=== PATIENT | female | born 1970 | race Caucasian/White ===

== ENCOUNTER 2020-03-19 14:19 | Emergency (ER) | payer MEDICAID, OTHER ==
[~2020-03-19] VITALS: Ht 160 cm; Wt 108.8 kg
--- OUTSIDE RECORDS SUMMARY | 2020-03-19 14:27 | XMS REPORT | Continuity of Care Document ---
Author Organization Unknown Address Unknown Phone Unavailable Allergies There is no data. Medications There is no data. Problems There is no data. Procedures There is no data. Results Test Result Range A1C - 12/29/18 11:55 HEMOGLOBIN A1c 7.7 % of total Hgb <5.7 MICROALBUMIN/CREATININE RATIO, URINE - 0 07/02/19 12:49 CREATININE, RANDOM URINE 239 mg/dL 20-27 5 MICROALBUMIN 2.5 mg/dL See Note: MICROALBUMIN/CREATININE RATIO, RANDOM URINE 10 mcg /mg creat <30 CBC w/MANUAL DIFF - 12/08/19 13:56 WHITE BLOOD CELL COUNT 9.8 Thousand/uL 3 .8-10.8 RED BLOOD CELL COUNT 4.95 Million/uL 3.8 0-5.10 HEMOGLOBIN 14.8 g/dL 11.7-15.5 HEMATOCRIT 44.7 % 35.0-45.0 MCV 90.3 fL 80.0-100.0 MCH 29.9 pg 27.0-33.0 MCHC 33.1 g/dL 32.0-36.0 RDW 13.5 % 11.0-15.0 PLATELET COUNT 278 Thousand/uL 140-400 MPV 9.8 fL 7.5-12.5 A1C - 12/08/19 13:56 HEMOGLOBIN A1c 10.8 % of total Hgb <5.7 DIFFERENTIAL, MANUAL - 12/08/19 13:56 ABSOLUTE NEUTROPHILS 6664 cells/uL 1500- 7800 ABSOLUTE MONOCYTES 284 cells/uL 200-950 ABSOLUTE EOSINOPHILS 186 cells/uL 15-500 ABSOLUTE BASOPHILS 0 cells/uL 0-200 NEUTROPHILS 68.0 % NRG LYMPHOCYTES 24.3 % NRG MONOCYTES 2.9 % NRG EOSINOPHILS 1.9 % NRG BASOPHILS 0 % NRG ABSOLUTE BAND NEUTROPHILS 98 cells/uL 0- 750 ABSOLUTE METAMYELOCYTES 186 cells/uL ABSOLUTE LYMPHOCYTES 2381 cells/uL 850-3 900 BAND NEUTROPHILS 1.0 % NRG METAMYELOCYTES 1.9 % NRG PLATELET ESTIMATION ADEQUATE ADEQUATE A1C - 03/02/20 07:17 HEMOGLOBIN A1c 11.8 % of total Hgb <5.7 Encounters ACCT No. Visit Date/Time Discharge Status Pt. Type Provider Facility Loc./Unit Complaint [id number] 03/10/2020 15:00:00 03/10/2020 23:59: 59 [facility] [id number] 03/02/2020 07:00:00 Document Registration [id number] 12/08/2019 12:30:00 Document Registration [id number] 07/02/2019 11:30:00 Document Registration [id number] 12/29/2018 11:45:00 Document Registration
--- OUTSIDE RECORDS SUMMARY | 2020-03-19 14:27 | XMS REPORT ---
Author Author Silva LARIOS Organization [facility] Address [address] [place] [address] Care Team Providers Care Aitchbone Breaker Name Role Phone STANISLAV LARIOS Unavailable PROBLEMS Type Condition ICD9-CM Code EDU04-LV Code Onset Dates Condition S tatus SNOMED Code Problem Morbid obesity with BMI of 40.0-44.9, adult E66.01 February, 0 672874734 Problem HTN (hypertension), benign I10 Apr, 0 39157114 Problem Cough R05 08 Mar, 2011 0 4307868 2 Problem Gastroesophageal reflux disease with esophagitis 530.11 Apr, 0 987645169 Problem Primary osteoarthritis of right knee M17.11 Sep, 0 610215366 Problem Controlled type 2 diabetes mellitus E11.9 Active 910141057 Problem Gastroesophageal reflux disease with esophagitis K 21.0 Apr, 0 944039544 Problem Morbid obesity with BMI of 40.0-44.9, adult 278.01 February, 0 085058329 Problem HTN (hypertension), benign 401.1 Apr, 0 90370690 Problem Cough 786.2 Mar, 0 2549873 2 Problem Primary osteoarthritis of right knee 715.16 Sep, 0 700145479 ALLERGIES No Information ENCOUNTERS Encounter Location Date Diagnosis [address] [address] Jun, Controlled type 2 diabetes mellitus E11. 9 [facility] [address] [place] [address] May, Morbid obesity E66.01 ; Bronchitis J40 a nd Acute non-recurrent maxillary sinusitis J01.[address] [address] Jan, [address] [address] Jan, [address] [address] Dec, Controlled type 2 diabetes mellitus E11. 9 [facility] [address] [facility] [id number] [address] [place] [phone] Oct, [facility] [address] [facility] [id number] [address] [place] [phone] Oct, [facility] [address] [facility] [id number] [address] [place] [id number] Sep, [facility] [address] [facility] [id number] [address] [place] [id number] February, IMMUNIZATIONS No Known Immunizations SOCIAL HISTORY Never Assessed REASON FOR VISIT Lab (walk-in) PLAN OF CARE VITAL SIGNS MEDICATIONS Unknown Medications RESULTS No Results PROCEDURES Procedure Date Ordered Result Body Site VENIPUNCT, ROUTINE* December 29, 2018 Hemoglobin Test Send Out 0 dollar December 29, 2018 LAB NOT BILLED BY [facility] December 29, 2018 INSTRUCTIONS MEDICATIONS ADMINISTERED No Known Medications
--- NOTE | 2020-03-19 14:59 | ED Abdominal Pain ---
General Chief Complaint: Abdominal/GI Problems Stated Complaint: VOMITING, FEVER YESTERDAY Nursing Triage Note: States has been sick for 3 days and is unable to keep down food or fluids. Also having diarrhea. Temperature at home was 102 two days ago. Is having lower abdominal pain rated at 8/10. Sepsis Screen: No Definite Risk Source of Information: Patient Exam Limitations: No Limitations History of Present Illness Date Seen by Provider: Mar 19, 2020 Time Seen by Provider: 14:30 Initial Comments Patient is a 49-year-old female with history of hypertension and type 2 diabetes who presents with intermittent daily nausea vomiting and diarrhea 3 days. Patient reports dizziness lightheadedness with last vomiting episode earlier this morning. She has been able to keep down some clear fluids but has not been able to eat any solid foods including crackers. Reports dizziness generalized weakness, fatigue and fever 102 2 days ago. No sore throat, cough, chest pain, shortness of breath, abdominal pain. No flank pain, chills, sweats. No other acute symptoms or complaints. Patient just finished her menstrual period. Previous C-sections. No prior abdominal surgeries. Timing/Duration: 3-4 Days Severity/Quality: Moderate Radiation: No Radiation Modifying Factors: Improves With Vomiting Associated Symptoms: Denies Symptoms Allergies and Home Medications Allergies Coded Allergies: Penicillins (Verified Allergy, Unknown, hives, 03/19/20) Patient Home Medication List Home Medication List Reviewed: Yes Review of Systems Review of Systems Constitutional: see HPI EENTM: See HPI Respiratory: See HPI Cardiovascular: See HPI Gastrointestinal: See HPI Genitourinary: See HPI Musculoskeletal: see HPI Skin: see HPI Psychiatric/Neurological: See HPI Endocrine: See HPI Hematologic/Lymphatic: See HPI All Other Systems Reviewed Negative Unless Noted: Yes Past Xfevyzh-Mriwul-Oscngr Hx Past Med/Social Hx: Reviewed Nursing Past Med/Soc Hx Patient Social History Recent Foreign Travel: No Contact w/Someone Who Travel: No Recent Infectious Disease Expo: No Physical Exam Vital Signs Vital Signs - First Documented 03/19/20 14:41 Pulse 69 Resp 16 Pulse Ox 95 Capillary Refill : Less Than 3 Seconds Height/Weight/BMI Height: '" Weight: lbs. oz. kg; 42.00 BMI Method: General Appearance: no apparent distress HEENT: PERRL/EOMI, TMs normal Neck: non-tender, full range of motion, supple Respiratory: chest non-tender, lungs clear Cardiovascular: normal peripheral pulses, regular rate, rhythm Gastrointestinal: non tender, soft Back: normal inspection, no CVA tenderness Focused Exam Sepsis Stage: Ruled Out Progress/Results/Core Measures Results/Orders Lab Results Laboratory Tests Test 03/19/20 14:51 Range/Units White Blood Count 8.0 4.3-11.0 10^3/uL Red Blood Count 5.01 4.35-5.85 10^6/uL Hemoglobin 14.6 11.5-16.0 G/DL Hematocrit 44 35-52 % Mean Corpuscular Volume 87 80-99 FL Mean Corpuscular Hemoglobin 29 25-34 PG Mean Corpuscular Hemoglobin Concent 34 32-36 G/DL Red Cell Distribution Width 13.2 10.0-14.5 % Platelet Count 288 130-400 10^3/uL Mean Platelet Volume 9.7 7.4-10.4 FL Neutrophils (%) (Auto) 83 H 42-75 % Lymphocytes (%) (Auto) 10 L 12-44 % Monocytes (%) (Auto) 7 0-12 % Eosinophils (%) (Auto) 0 0-10 % Basophils (%) (Auto) 0 0-10 % Neutrophils # (Auto) 6.6 1.8-7.8 X 10^3 Lymphocytes # (Auto) 0.8 L 1.0-4.0 X 10^3 Monocytes # (Auto) 0.5 0.0-1.0 X 10^3 Eosinophils # (Auto) 0.0 0.0-0.3 10^3/uL Basophils # (Auto) 0.0 0.0-0.1 10^3/uL Sodium Level 134 L 135-145 MMOL/L Potassium Level 3.7 3.6-5.0 MMOL/L Chloride Level 93 L 98-107 MMOL/L Carbon Dioxide Level 24 21-32 MMOL/L Anion Gap 17 H 5-14 MMOL/L Blood Urea Nitrogen 13 7-18 MG/DL Creatinine 1.21 0.60-1.30 MG/DL Estimat Glomerular Filtration Rate 48 BUN/Creatinine Ratio 11 Glucose Level 291 H 70-105 MG/DL Calcium Level 9.7 8.5-10.1 MG/DL Corrected Calcium 9.9 8.5-10.1 MG/DL Total Bilirubin 0.6 0.1-1.0 MG/DL Aspartate Amino Transf (AST/SGOT) 28 5-34 U/L Alanine Aminotransferase (ALT/SGPT) 32 0-55 U/L Alkaline Phosphatase 129 40-136 U/L Total Protein 7.9 6.4-8.2 GM/DL Albumin 3.7 3.2-4.5 GM/DL Lipase 28 8-78 U/L My Orders Orders - URSULA VOSS DO Cbc With Automated Diff (03/19/20 14:31) Comprehensive Metabolic Panel (03/19/20 14:31) Urine Bedside (03/19/20 14:31) Lipase (03/19/20 14:53) Ns Iv 1000 Ml (Sodium Chloride 0.9%) (03/19/20 15:00) Ondansetron Injection (Zofran Injectio (03/19/20 15:00) Famotidine Injection (Pepcid Injection) (03/19/20 15:00) Ns Iv 1000 Ml (Sodium Chloride 0.9%) (03/19/20 16:15) Medications Given in ED Current Medications Medications Dose Ordered Sig/Juan José Route Start Time Stop Time Status Last Admin Dose Admin Famotidine 20 mg ONCE ONCE IVP 03/19/20 15:00 03/19/20 15:01 DC 03/19/20 15:09 20 MG Ondansetron HCl 4 mg ONCE ONCE IVP 03/19/20 15:00 03/19/20 15:01 DC 03/19/20 15:09 4 MG Vital Signs/I&O 03/19/20 14:41 Pulse 69 Resp 16 B/P (MAP) Pulse Ox 95 Departure Communication (Admissions) Symptoms significantly improved with IV fluids and antiemetics. Abdomen remained soft, nonsurgical. We'll continue supportive care with watchful waiting, discharge: PCP follow-up. Return precautions reviewed. Patient verbalizes understanding agreement discharge instructions prior to departure Impression Primary Impression: Vomiting and diarrhea Additional Impression: Hyperglycemia Disposition: 01 HOME, SELF-CARE Condition: Stable Departure-Patient Inst. Decision time for Depature: 16:36 Patient Instructions: Nausea and Vomiting, Adult (DC) Add. Discharge Instructions: You were evaluated in the emergency department for vomiting and agreement. Please take Zofran for nausea and Pepto-Bismol for diarrhea. Increase fluids over the next 6-12 hours then gradually increase to bland diet as tolerated. Follow-up with PCP early next week for reevaluation if symptoms persist. Return to the ED if new or worsening symptoms All discharge instructions reviewed with patient and/or family. Voiced understanding. Scripts Ondansetron (Ondansetron Odt) 4 Mg Tab.rapdis 4 MG PO Q6H, #10 TAB Prov: URSULA VOSS DO 03/19/20 URSULA VOSS DO Mar 19, 2020 14:59
[2020-03-19] MEDS ORDERED: ONDANSETRON 4 MG/2 ML (SDV) Z0FRAN IVP ONE (15:00)
[2020-03-19] MEDS ORDERED: FAMOTIDINE 20MG/2ML IV (PEPCID) IVP ONE (15:00)
[2020-03-19] MEDS ORDERED: NS IV 1000 ML 1,000 ML IV SCH ×2 (15:00→16:15)
[2020-03-19 15:03] LABS: BASOPHILS % (AUTO) 0 % (0-10); EOSINOPHILS % (AUTO) 0 % (0-10); HEMATOCRIT 44 % (35-52); HEMOGLOBIN 14.6 G/DL (11.5-16.0); LYMPHOCYTES # (AUTO) 0.8 X 10^3 (1.0-4.0); LYMPHOCYTES % (AUTO) 10 % (12-44); MEAN CORPUSCULAR HEMOGLOBIN 29 PG (25-34); MEAN CORPUSCULAR HGB CONC 34 G/DL (32-36); MEAN CORPUSCULAR VOLUME 87 FL (80-99); MEAN PLATELET VOLUME 9.7 FL (7.4-10.4); MONOCYTES # (AUTO) 0.5 X 10^3 (0.0-1.0); MONOCYTES % (AUTO) 7 % (0-12); NEUTROPHILS # (AUTO) 6.6 X 10^3 (1.8-7.8); NEUTROPHILS % (AUTO) 83 % (42-75); PLATELET COUNT 288 10^3/uL (130-400); RED CELL DISTRIBUTION WIDTH 13.2 % (10.0-14.5)
[2020-03-19 15:19] LABS: POTASSIUM 3.7 MMOL/L (3.6-5.0)
[2020-03-19 15:20] LABS: ALBUMIN 3.7 GM/DL (3.2-4.5); BILIRUBIN,TOTAL 0.6 MG/DL (0.1-1.0); CALCIUM 9.7 MG/DL (8.5-10.1); CREATININE SERUM 1.21 MG/DL (0.60-1.30); TOTAL PROTEIN 7.9 GM/DL (6.4-8.2)
[2020-03-19] MEDS ORDERED: ONDA4TAB11 PO (16:37)
[2020-03-19 17:16] VITALS: BP 104/54
== END 2020-03-19 17:15 | disposition home or self-care (01) ==
LOC: ER FS 14:22
DX: E11.65 Type 2 diabetes mellitus with hyperglycemia (principal); R19.7 Diarrhea, unspecified; Z88.0 Allergy status to penicillin
CPT/HCPCS: 36415; 80053; 83690; 85025

== ENCOUNTER 2022-11-21 15:01 | Outpatient (CLI) | payer MEDICAID ==
[~2022-11-21 15:01] MED LIST: ONDA4TAB11 PO
== END 2022-11-21 15:20 ==
LOC: SLEEP 15:01
PROVIDERS: ATTEND Surgery
DX: G47.33 Obstructive sleep apnea (adult) (pediatric) (principal); I10 Essential (primary) hypertension; E66.9 Obesity, unspecified
CPT/HCPCS: G0399